=== PATIENT | male | born 2000 | race Two or more races ===

== ENCOUNTER 2021-05-03 06:42 | Emergency (ER) | payer BC, MEDICAID ==
[~2021-05-03] VITALS: Ht 175.3 cm; Wt 55.1 kg
[2021-05-03 06:46] VITALS: BP 113/72
[2021-05-03] MEDS ORDERED: LIDOCAINE-MPF 2% ,5ML ONE (07:11)
[2021-05-03] MEDS ORDERED: DIPH,PERTUSS(ACELL),TET VAC/PF 0.5 ML IM-VACC ONE ×2 (07:12→07:30)
[2021-05-03] MEDS ORDERED: LIDOCAINE 2%, 20ML SQ ONE (07:30)
[2021-05-03] MEDS ORDERED: ACETAMINOPHEN 500 MG TABLET ONE (07:34)
[2021-05-03] MEDS ORDERED: ACETAMINOPHEN 500 MG TABLET PO ONE (08:00)
[2021-05-03] MEDS ORDERED: BACITRACIN ZINC OINT 500U/GM, 0.9 GM ONE (08:41)
--- NOTE | 2021-05-03 08:49 | NUR ---
Patient given discharge instructions and they have confirmed that they understand the instructions. Patient ambulatory with steady gait. NAD, all questions answered appropriately, denies additional needs at this time. No personal belongings left in room after discharge.
== END 2021-05-03 08:50 | disposition home or self-care (01) ==
LOC: ED 08:40
DX: S61.411A Laceration without foreign body of right hand, initial encounter (principal); X58.XXXA Exposure to other specified factors, initial encounter; Y93.89 Activity, other specified; Y92.89 Other specified places as the place of occurrence of the external cause; Y99.8 Other external cause status
CPT/HCPCS: 12002; 90471; 90715; 99283; J3490

== ENCOUNTER 2021-05-16 06:49 | Emergency (ER) | payer BC ==
[~2021-05-16] VITALS: Ht 177.8 cm; Wt 57.0 kg
[2021-05-16 07:01] VITALS: BP 113/71
== END 2021-05-16 07:26 | disposition home or self-care (01) ==
LOC: ED 06:50
DX: S61.411D Laceration without foreign body of right hand, subsequent encounter (principal); L03.113 Cellulitis of right upper limb; X58.XXXD Exposure to other specified factors, subsequent encounter
CPT/HCPCS: 99283